=== PATIENT | female | born 1990 | race Caucasian/White ===

== ENCOUNTER 2016-08-06 15:16 | Emergency (ER) | payer SELFPAY ==
[~2016-08-06] VITALS: Wt 107.0 kg
[~2016-08-06 15:16] MED LIST: ACET500C5 PO; ALBU8.5H3 INH; BACTDS PO; BEN25 PO; BEN50 PO; BENZ100C70 PO; CEPH-443 PO; CEPH500C PO; CLOT30CR24 TOP; IBUP-1542 PO; IBUP800T25 PO; MED4DP PO; MUPI22OI2 TOP
== END 2016-08-06 17:41 | disposition left against medical advice (07) ==
LOC: FTE 15:16
DX: Z53.21 Procedure and treatment not carried out due to patient leaving prior to being seen by health care provider (principal)

== ENCOUNTER 2016-08-10 12:22 | Emergency (ER) | payer BC ==
[~2016-08-10] VITALS: Wt 105.0 kg
[2016-08-10] MEDS ORDERED: BEN25 PO (13:46)
--- NOTE | 2016-08-10 13:50 | ERD ---
ER Documentation Chief Complaint Date/Time DATE: 08/10/16 TIME: 13:47 Chief Complaint headache with no nausea no vomiting. no neuro deficit or trauma HPI 25-year-old female with no significant past medical history presents the ED complaining of an intermittent headache that started 1 month ago. States that she takes Benadryl for her headache and it resolves her headache. Reports that she is here for a prescription for Benadryl. Describes the pain as a slight achy feeling and is predominantly in the frontal region. Rates it a 8 out of 10. States that loud noises make it worse. Denies any nausea, vomiting, abdominal pain, chest pain, shortness of breath, weakness, dizziness, numbness or tingling, fever, neck stiffness, neck pain. Denies any head trauma or injuries. Denies any seizures or loss of consciousness. ROS All systems reviewed and are negative except as per history of present illness. Medications Home Meds Active Scripts Diphenhydramine Hcl* (Benadryl*) 25 Mg Cap, 25 MG PO Q6, #30 CAP Prov:ELIU GARCIA PA-C 08/10/16 Cephalexin* (Keflex*) 500 Mg Capsule, 500 MG PO QID for 7 Days, CAP Prov:KAYODE LANDERS PA-C 03/26/16 Ibuprofen* (Motrin*) 800 Mg Tab, 800 MG PO Q6, #30 TAB Prov:KAYODE LANDERS PA-C 03/26/16 Sulfamethoxazole-Trimethoprim* (Bactrim* DS) 800-160 Mg Tab, 1 TAB PO BID for 7 Days, TAB Prov:KAYODE LANDERS PA-C 03/26/16 Mupirocin* (Bactroban*) 2% -22 Gram Oint...g., 1 APPLIC TOP BID for 7 Days, EA Prov:LEYDA FARMER PA-C 02/17/16 Sulfamethoxazole-Trimethoprim* (Bactrim* DS) 800-160 Mg Tab, 1 TAB PO BID for 7 Days, TAB Prov:LEYDA FARMER PA-C 02/17/16 Cephalexin* (Keflex*) 500 Mg Capsule, 500 MG PO QID for 7 Days, CAP Prov:LEYDA FARMER PA-C 02/17/16 Diphenhydramine Hcl* (Benadryl*) 25 Mg Cap, 25 MG PO Q6, #20 CAP Prov:LEYDA FARMER PA-C 02/17/16 Diphenhydramine Hcl* (Benadryl*) 50 Mg Cap, 50 MG PO Q6H Y for ITCHING/RASH, # 30 CAP Prov:FLOYD MELGAR NP 02/08/16 Clotrimazole* (Clotrimazole* AF) 1% - 30 Gm Cream.gm., 1 APPLIC TOP BID for 14 Days, TUB Prov:FLOYD MELGAR BELLY DANCER 02/08/16 Methylprednisolone* (Medrol* DOSE PACK) 4 Mg/Dose-Pack Tab.ds.pk, 4 MG PO . DIRECTED, #1 PACKET Prov:NIRMAL MORIN PA-C 12/03/15 Benzonatate* (Tessalon Perle*) 100 Mg Capsule, 100 MG PO Q8H Y for COUGH, #30 CAP Prov:NIRMAL MORIN PA-C 12/03/15 Albuterol Sulfate* (Proair HFA*) 8.5 Gm Hfa.aer.ad, 2 PUFF INH Q4, #1 INHALER Prov:NIRMAL MORIN PA-C 12/03/15 Sulfamethoxazole-Trimethoprim* (Bactrim* DS) 800-160 Mg Tab, 1 TAB PO BID, #10 TAB 0 Refills Prov:DAVE CANDELARIA PA-C 10/31/15 Cephalexin* (Cephalexin*) 500 Mg Capsule, 500 MG PO Q6, #28 CAP 0 Refills Prov:DAVE CANDELARIA PA-C 10/31/15 Ibuprofen* (Motrin*) 600 Mg Tab, 600 MG PO Q6H Y for PAIN AND OR ELEVATED TEMP, #30 TAB Prov:ЕЛЕНА PAVON MD 09/17/15 Sulfamethoxazole-Trimethoprim* (Bactrim* DS) 800-160 Mg Tab, 1 TAB PO BID for 7 Days, TAB Prov:ЕЛЕНА PAVON MD 09/17/15 Cephalexin* (Keflex*) 500 Mg Capsule, 500 MG PO QID for 7 Days, CAP Prov:ЕЛЕНА PAVON MD 09/17/15 Acetaminophen* (Tylophen*) 500 Mg Capsule, 1 CAP PO Q4 Y for PAIN AND OR ELEVATED TEMP, #20 CAP Prov:YULI JOINER PA-C 06/12/15 Cephalexin* (Keflex*) 500 Mg Capsule, 500 MG PO QID for 5 Days, CAP Prov:YULI JOINER PA-C 06/12/15 Sulfamethoxazole-Trimethoprim* (Bactrim* DS) 800-160 Mg Tab, 1 TAB PO BID for 5 Days, TAB Prov:RHYSYULI PA-C 06/12/15 Allergies Allergies: Coded Allergies: No Known Allergy (Unverified , 08/10/16) PMhx/Soc Medical and Surgical Hx: pt denies Medical Hx, pt denies Surgical Hx History of Surgery: No Anesthesia Reaction: No Hx Neurological Disorder: No Hx Respiratory Disorders: No Hx Cardiac Disorders: No Hx Psychiatric Problems: No Hx Miscellaneous Medical Probl: No Hx Alcohol Use: No Hx Substance Use: No Hx Tobacco Use: No Smoking Status: Never smoker Physical Exam Vitals Vital Signs Date Time Temp Pulse Resp B/P Pulse Ox O2 Delivery O2 Flow Rate FiO2 08/10/16 14:20 99.1 67 18 115/53 100 Room Air 08/10/16 12:26 97.9 85 18 140/84 98 Physical Exam Const: [id number], well-nourished. In no acute distress. Head: Atraumatic, normocephalic Eyes: Normal Conjunctiva without injection. No purulent discharge. PERRLA. EOMI ENT: Normal external ear. Ear canal without erythema. Tympanic membrane pearly be without effusion or bulging. Nasal canal clear with normal turbinates. Moist oropharynx without tonsillar exudates. Non-erythematous pharynx. Uvula midline. No drooling. No trismus. Neck: No cervical midline tenderness. Full range of motion. No meningismus. No cervical lymphadenopathy. No JVD. Resp: Clear to auscultation bilaterally. No wheezing, rhonchi, rales, or crackles. No accessory muscle use. No retractions. Cardio: Regular rate and rhythm. No murmurs, rubs or gallops. Abd: Soft, non tender, non distended. Normal bowel sounds. No palpable masses. No rebound tenderness. No guarding. Negative McBurney's Point. Negative Dunlap's Sign. Skin: Normal skin turgor. No petechiae or rashes Back: No midline tenderness. No CVA tenderness. Ext: No cyanosis, or edema. Distal pulses intact bilaterally. Neur: Awake and alert. Normal gait. Normal coordination. Cranial Nerves II- VII intact. Normal finger to nose. Muscle strength 5/5. Sensation intact. Psych: Normal Mood and Affect Procedures/MDM This is a 25-year-old female with no significant past medical history presents to the ED complaining of a generalized headache that started intermittently 1 month ago. Patient is afebrile nontoxic appearing. Patient has normal vital signs. Patient is neurologically intact. There is no indication for CT of the brain without contrast at this time since patient states that her headache resolves with Benadryl. No head trauma. Low suspicion for intracranial bleed, subdural hematoma, subarachnoid hemorrhage, meningitis, epidural hematoma, stroke, TIA, or other emergent conditions. Discharge medications: Benadryl Follow up with primary care physician in 1-2 days. Instructed patient to return to the ED sooner for any worsening symptoms. Patient's questions were answered. Patient understood and agreed with discharge plan. Patient discharged stable. Departure Diagnosis: Primary Impression: Headache Headache type: unspecified Headache chronicity pattern: unspecified pattern Intractability: not intractable Qualified Code: R51 - Nonintractable headache, unspecified chronicity pattern, unspecified headache type Condition: Stable Patient Instructions: Self-Care for Headaches, Headache, Unspecified Referrals: [facility] YOU HAVE RECEIVED A MEDICAL SCREENING EXAM AND THE RESULTS INDICATE THAT YOU DO NOT HAVE A CONDITION THAT REQUIRES URGENT TREATMENT IN THE EMERGENCY DEPARTMENT. FURTHER EVALUATION AND TREATMENT OF YOUR CONDITION CAN WAIT UNTIL YOU ARE SEEN IN YOUR DOCTORS OFFICE WITHIN THE NEXT 1-2 DAYS. IT IS YOUR RESPONSIBILITY TO MAKE AN APPOINTMENT FOR FOL- CARE. IF YOU HAVE A PRIMARY DOCTOR --you should call your primary doctor and schedule an appointment IF YOU DO NOT HAVE A PRIMARY DOCTOR YOU CAN CALL OUR PHYSICIAN REFERRAL HOTLINE AT IF YOU CAN NOT AFFORD TO SEE A PHYSICIAN YOU CAN CHOSE FROM THE FOLLOWING [facility] [address] [facility] [address] [facility]. [facility] [address] [facility] [address] [facility] [address] [facility]. [facility] [address] [facility]. [facility] YOU HAVE RECEIVED A MEDICAL SCREENING EXAM AND THE RESULTS INDICATE THAT YOU DO NOT HAVE A CONDITION THAT REQUIRES URGENT TREATMENT IN THE EMERGENCY DEPARTMENT. FURTHER EVALUATION AND TREATMENT OF YOUR CONDITION CAN WAIT UNTIL YOU ARE SEEN IN YOUR DOCTORS OFFICE WITHIN THE NEXT 1-2 DAYS. IT IS YOUR RESPONSIBILITY TO MAKE AN APPOINTMENT FOR FOLOW-UP CARE. IF YOU HAVE A PRIMARY DOCTOR --you should call your primary doctor and schedule and appointment IF YOU DO NOT HAVE A PRIMARY DOCTOR YOU CAN CALL OUR PHYSICIAN REFERRAL HOTLINE AT . IF YOU CAN NOT AFFORD TO SEE A PHYSICIAN YOU CAN CHOSE FROM THE FOLLOWING [facility]: [facility] [address] [place] [address] [facility] [address] [place] [address] [facility] [address] [place] [address] Additional Instructions: FOLLOW UP WITH YOUR PRIMARY CARE PHYSICIAN TOMORROW. Return to this facility if you are not improving as expected. ELIU GARCIA PA-C Aug 10, 2016 13:50
[2016-08-10 14:20] VITALS: BP 115/53; PULSE 67; RESP 18; TEMP 99.1
== END 2016-08-10 14:20 | disposition home or self-care (01) ==
LOC: FTE 12:22
DX: R51 Headache (principal)
CPT/HCPCS: 99283

== ENCOUNTER 2016-10-08 16:47 | Emergency (ER) | payer BC, MEDICAID ==
[~2016-10-08] VITALS: Wt 92.5 kg
[2016-10-08] MEDS ORDERED: ACETAMINOPHEN 500 MG TAB PO STA (17:58)
[2016-10-08] MEDS ORDERED: KETOROLAC 60 MG INJ IM STA (17:58)
[2016-10-08] MEDS ORDERED: ONDANSETRON (ODT) 4 MG TAB ODT STA (17:58)
[2016-10-08] MEDS ORDERED: FAMOTIDINE 20 MG TAB PO ONE (18:00)
[2016-10-08 18:14] LABS: URINE BLOOD (Dip) POC 1+ (NEGATIVE)
[2016-10-08] MEDS ORDERED: ACET1TAB40 PO (18:43)
[2016-10-08] MEDS ORDERED: BISM262O23 PO (18:43)
[2016-10-08] MEDS ORDERED: IBUP-1542 PO (18:43)
--- NOTE | 2016-10-08 18:47 | ERD ---
ER Documentation Chief Complaint Date/Time DATE: 10/08/16 TIME: 18:45 Chief Complaint ABDOMINAL PAIN AND DIARRHEA SINCE LAST NIGHT. NO FEVERS NOTED. HPI 26-year-old female presents with some lower left abdominal pain and diarrhea since last night. She has nausea but no vomiting. She denies measured fevers. She denies right-sided abdominal pain, dysuria. ROS All systems reviewed and are negative except as per history of present illness. Medications Home Meds Active Scripts Bismuth Subsalicylate* (Pepto-Bismol*) 262 Mg/15 Ml Oral.susp, 15 ML PO Q6H Y for DIARRHEA for 4 Days, ML Prov:PATRICE ROWE MD 10/08/16 Acetaminophen with Codeine (Acetaminophen-Cod #3 Tablet) 1 Each Tablet, 1 TAB PO Q6H Y for PAIN, #10 TAB Prov:PATRICE ROWE MD 10/08/16 Ibuprofen* (Motrin*) 600 Mg Tab, 600 MG PO Q6, #15 TAB Prov:PATRICE ROWE MD 10/08/16 Diphenhydramine Hcl* (Benadryl*) 25 Mg Cap, 25 MG PO Q6, #30 CAP Prov:ELIU GARCIA PA-C 08/10/16 Cephalexin* (Keflex*) 500 Mg Capsule, 500 MG PO QID for 7 Days, CAP Prov:KAYODE LANDERS PA-C 03/26/16 Ibuprofen* (Motrin*) 800 Mg Tab, 800 MG PO Q6, #30 TAB Prov:KAYODE LANDERS PA-C 03/26/16 Sulfamethoxazole-Trimethoprim* (Bactrim* DS) 800-160 Mg Tab, 1 TAB PO BID for 7 Days, TAB Prov:KAYODE LANDERS PA-C 03/26/16 Mupirocin* (Bactroban*) 2% -22 Gram Oint...g., 1 APPLIC TOP BID for 7 Days, EA Prov:LEYDA FARMER PA-C 02/17/16 Sulfamethoxazole-Trimethoprim* (Bactrim* DS) 800-160 Mg Tab, 1 TAB PO BID for 7 Days, TAB Prov:LEYDA FARMER PA-C 02/17/16 Cephalexin* (Keflex*) 500 Mg Capsule, 500 MG PO QID for 7 Days, CAP Prov:LEYDA FARMER PA-C 02/17/16 Diphenhydramine Hcl* (Benadryl*) 25 Mg Cap, 25 MG PO Q6, #20 CAP Prov:LEYDA FARMER PA-C 02/17/16 Diphenhydramine Hcl* (Benadryl*) 50 Mg Cap, 50 MG PO Q6H Y for ITCHING/RASH, # 30 CAP Prov:FLOYD MELGAR. WELLNESS COORDINATOR 02/08/16 Clotrimazole* (Clotrimazole* AF) 1% - 30 Gm Cream.gm., 1 APPLIC TOP BID for 14 Days, TUB Prov:FLOYD MELGAR X. WELLNESS COORDINATOR 02/08/16 Methylprednisolone* (Medrol* DOSE PACK) 4 Mg/Dose-Pack Tab.ds.pk, 4 MG PO . DIRECTED, #1 PACKET Prov:NIRMAL MORIN PA-C 12/03/15 Benzonatate* (Tessalon Perle*) 100 Mg Capsule, 100 MG PO Q8H Y for COUGH, #30 CAP Prov:NIRMAL MORIN PA-C 12/03/15 Albuterol Sulfate* (Proair HFA*) 8.5 Gm Hfa.aer.ad, 2 PUFF INH Q4, #1 INHALER Prov:NIRMAL MORIN PA-C 12/03/15 Sulfamethoxazole-Trimethoprim* (Bactrim* DS) 800-160 Mg Tab, 1 TAB PO BID, #10 TAB 0 Refills Prov:DAVE CANDELARIA PA-C 10/31/15 Cephalexin* (Cephalexin*) 500 Mg Capsule, 500 MG PO Q6, #28 CAP 0 Refills Prov:DAVE CANDELARIA PA-C 10/31/15 Ibuprofen* (Motrin*) 600 Mg Tab, 600 MG PO Q6H Y for PAIN AND OR ELEVATED TEMP, #30 TAB Prov:ЕЛЕНА PAVON MD 09/17/15 Sulfamethoxazole-Trimethoprim* (Bactrim* DS) 800-160 Mg Tab, 1 TAB PO BID for 7 Days, TAB Prov:ЕЛЕНА PAVON MD 09/17/15 Cephalexin* (Keflex*) 500 Mg Capsule, 500 MG PO QID for 7 Days, CAP Prov:ЕЛЕНА PAVON MD 09/17/15 Acetaminophen* (Tylophen*) 500 Mg Capsule, 1 CAP PO Q4 Y for PAIN AND OR ELEVATED TEMP, #20 CAP Prov:YULI JOINER PA-C 06/12/15 Cephalexin* (Keflex*) 500 Mg Capsule, 500 MG PO QID for 5 Days, CAP Prov:SHERMANSUSANNAMartYULI PA-C 06/12/15 Sulfamethoxazole-Trimethoprim* (Bactrim* DS) 800-160 Mg Tab, 1 TAB PO BID for 5 Days, TAB Prov:RHYSYULI PA-C 06/12/15 Allergies Allergies: Coded Allergies: No Known Allergy (Unverified , 10/08/16) PMhx/Soc Medical and Surgical Hx: pt denies Medical Hx, pt denies Surgical Hx History of Surgery: No Anesthesia Reaction: No Hx Neurological Disorder: No Hx Respiratory Disorders: No Hx Cardiac Disorders: No Hx Psychiatric Problems: No Hx Miscellaneous Medical Probl: No Hx Alcohol Use: No Hx Substance Use: No Hx Tobacco Use: No Smoking Status: Never smoker Physical Exam Vitals Vital Signs Date Time Temp Pulse Resp B/P Pulse Ox O2 Delivery O2 Flow Rate FiO2 10/08/16 16:54 99.9 102 20 135/82 98 Physical Exam Const: [] Alert, [id number]. Morbidly obese. Head: Atraumatic Eyes: Normal Conjunctiva ENT: Normal External Ears, Nose and Mouth. Neck: Full range of motion..~ No meningismus. Resp: Clear to auscultation bilaterally Cardio: Regular rate and rhythm, no murmurs Abd: Soft, minimal tenderness in the epigastric and left lower abdomen without rebound. No tenderness at McBurney's point no Dunlap sign. non distended. Normal bowel sounds Skin: No petechiae or rashes Back: No midline or flank tenderness Ext: No cyanosis, or edema Neur: Awake and alert Psych: Normal Mood and Affect Results 24 hrs Laboratory Tests Test 10/08/16 18:17 Bedside Urine Blood 1+ Bedside Urine Glucose (UA) Negative Bedside Urine Ketones (LAB) Negative Bedside Urine Leukocyte Esterase (L Negative Bedside Urine Nitrite (LAB) Negative Bedside Urine Protein (LAB) Trace Bedside Urine pH (LAB) 5.5 Current Medications Medications (Trade) Dose Ordered Sig/Zay Route PRN Reason Start Time Stop Time Status Last Admin Dose Admin Ketorolac Tromethamine (Toradol) 60 mg ONCE STAT IM 10/08/16 17:58 10/08/16 17:59 DC 10/08/16 18:20 Acetaminophen (Tylenol Tab) 500 mg ONCE STAT PO 10/08/16 17:58 10/08/16 17:59 DC 10/08/16 18:19 Ondansetron HCl (Zofran Odt) 8 mg ONCE STAT ODT 10/08/16 17:58 10/08/16 17:59 DC 10/08/16 18:20 Famotidine (Pepcid) 20 mg ONCE ONCE PO 10/08/16 18:00 10/08/16 18:01 DC 10/08/16 18:19 Procedures/MDM Urine is negative for leukocytes, nitrites, glucose. HCG is negative. Patient was given Zofran, Tylenol and Toradol 60 mg IM for abdominal cramping. Patient has signs and symptoms lower abdominal pain and diarrhea suggestive of a gastroenteritis with her food poisoning or viral. Signs or symptoms currently not suggestive of appendicitis, acute abdomen, sepsis, obstruction and suspicion for diverticulitis low given onset and duration. Patient will be treated with Tylenol No. 3, Pepto-Bismol and ibuprofen instructions for clear fluid. Patient should return for fevers, worsening pain, blood, new worsening symptoms or primary care doctor this week. Departure Diagnosis: Primary Impression: Abdominal pain Abdominal location: left lower quadrant Qualified Code: R10.32 - Left lower quadrant pain Additional Impression: Diarrhea Diarrhea type: unspecified type Qualified Code: R19.7 - Diarrhea, unspecified type Condition: Stable Patient Instructions: Abdominal Pain, Diarrhea, Viral (Child) (Adult) Additional Instructions: Likely viral illness usually resolves in 1-3 days. Recheck for new or worsening symptoms-worsening pain especially on right side, blood, or with primary care doctor PATRICE ROWE MD Oct 08, 2016 18:46
== END 2016-10-08 18:56 | disposition home or self-care (01) ==
LOC: FTE 16:47
DX: R10.32 Left lower quadrant pain (principal); R19.7 Diarrhea, unspecified; R11.0 Nausea; E66.01 Morbid (severe) obesity due to excess calories
CPT/HCPCS: 81003; 96372; J1885; Z7502; Z7610

== ENCOUNTER 2016-11-15 13:55 | Emergency (ER) | payer MEDICAID, OTHER ==
[~2016-11-15] VITALS: Ht 165.1 cm; Wt 107.0 kg
[~2016-11-15 13:55] MED LIST changes: +ACET1TAB40 PO; +BISM262O23 PO
[2016-11-15 13:57] VITALS: Ht 165.1 cm; Wt 107.0 kg
--- NOTE | 2016-11-15 14:06 | ERD ---
ER Documentation Chief Complaint Date/Time DATE: 11/15/16 Chief Complaint Bilateral axillary abscesses HPI The patient is a 26-year-old female with a history of hydradenitis suppurativa, who presents to the Emergency Department with complaint of bilateral axillary abscesses. The patient reports that she has a long history of similar symptoms that she has been experiencing over the past several years. She has been evaluated for these symptoms multiple times in the past, and has often required antibiotic therapy and/or incision and drainage procedure. She notes that her symptoms are very mild at this time, and believes that she likely only requires antibiotic therapy. She notes that in the past she has received Bactrim DS and Keflex many times previously, and notes that after taking these medications multiple times, she began to experience adverse reactions, including itching, fatigue and lower lip swelling. Therefore, she is requesting that different antibiotics be prescribed today. She denies fevers, sweats, chills, nausea or vomiting. Denies headache, dizziness, weakness. Denies chest pain, palpitations or shortness of breath. She has not yet seen her primary medical provider or a maintenance millwright for these symptoms. She rates her current pain as 5 out of 10, describes as throbbing in nature, localized to the site of the abscesses. She admits to mild spontaneous drainage, but no bleeding. No fluctuance, redness or lymphatic streaking ROS All systems reviewed and are negative except as per history of present illness. Medications Home Meds Active Scripts Ibuprofen* (Motrin*) 600 Mg Tab, 600 MG PO Q6, #30 TAB Prov:JUAN ALBERTO YIP PA-C 11/15/16 Clindamycin Hcl* (Clindamycin Hcl*) 300 Mg Capsule, 300 MG PO TID for 10 Days, CAP Prov:JUAN ALBERTO YIP PA-C 11/15/16 Bismuth Subsalicylate* (Pepto-Bismol*) 262 Mg/15 Ml Oral.susp, 15 ML PO Q6H Y for DIARRHEA for 4 Days, ML Prov:PATRICE ROWE MD 10/08/16 Acetaminophen with Codeine (Acetaminophen-Cod #3 Tablet) 1 Each Tablet, 1 TAB PO Q6H Y for PAIN, #10 TAB Prov:PATRICE ROWE MD 10/08/16 Ibuprofen* (Motrin*) 600 Mg Tab, 600 MG PO Q6, #15 TAB Prov:PATRICE ROWE MD 10/08/16 Diphenhydramine Hcl* (Benadryl*) 25 Mg Cap, 25 MG PO Q6, #30 CAP Prov:ELIU GARCIA PA-C 08/10/16 Cephalexin* (Keflex*) 500 Mg Capsule, 500 MG PO QID for 7 Days, CAP Prov:KAYODE LANDERS PA-C 03/26/16 Ibuprofen* (Motrin*) 800 Mg Tab, 800 MG PO Q6, #30 TAB Prov:KAYODE LANDERS PA-C 03/26/16 Sulfamethoxazole-Trimethoprim* (Bactrim* DS) 800-160 Mg Tab, 1 TAB PO BID for 7 Days, TAB Prov:KAYODE LANDERS PA-C 03/26/16 Mupirocin* (Bactroban*) 2% -22 Gram Oint...g., 1 APPLIC TOP BID for 7 Days, EA Prov:LEYDA FARMER PA-C 02/17/16 Sulfamethoxazole-Trimethoprim* (Bactrim* DS) 800-160 Mg Tab, 1 TAB PO BID for 7 Days, TAB Prov:LEYDA FARMER PA-C 02/17/16 Cephalexin* (Keflex*) 500 Mg Capsule, 500 MG PO QID for 7 Days, CAP Prov:LEYDA FARMER PA-C 02/17/16 Diphenhydramine Hcl* (Benadryl*) 25 Mg Cap, 25 MG PO Q6, #20 CAP Prov:LEYDA FARMER PA-C 02/17/16 Diphenhydramine Hcl* (Benadryl*) 50 Mg Cap, 50 MG PO Q6H Y for ITCHING/RASH, # 30 CAP Prov:FLOYD MELGAR NP 02/08/16 Clotrimazole* (Clotrimazole* AF) 1% - 30 Gm Cream.gm., 1 APPLIC TOP BID for 14 Days, TUB Prov:FLOYD MELGAR NP 02/08/16 Methylprednisolone* (Medrol* DOSE PACK) 4 Mg/Dose-Pack Tab.ds.pk, 4 MG PO . DIRECTED, #1 PACKET Prov:NIRMAL MORIN PA-C 12/03/15 Benzonatate* (Tessalon Perle*) 100 Mg Capsule, 100 MG PO Q8H Y for COUGH, #30 CAP Prov:NIRMAL MORIN PA-C 12/03/15 Albuterol Sulfate* (Proair HFA*) 8.5 Gm Hfa.aer.ad, 2 PUFF INH Q4, #1 INHALER Prov:NIRMAL MORIN PA-C 12/03/15 Sulfamethoxazole-Trimethoprim* (Bactrim* DS) 800-160 Mg Tab, 1 TAB PO BID, #10 TAB 0 Refills Prov:DAVE CANDELARIA PA-C 10/31/15 Cephalexin* (Cephalexin*) 500 Mg Capsule, 500 MG PO Q6, #28 CAP 0 Refills Prov:DAVE CANDELARIA PA-C 10/31/15 Ibuprofen* (Motrin*) 600 Mg Tab, 600 MG PO Q6H Y for PAIN AND OR ELEVATED TEMP, #30 TAB Prov:ЕЛЕНА PAVON MD 09/17/15 Sulfamethoxazole-Trimethoprim* (Bactrim* DS) 800-160 Mg Tab, 1 TAB PO BID for 7 Days, TAB Prov:ЕЛЕНА PAVON MD 09/17/15 Cephalexin* (Keflex*) 500 Mg Capsule, 500 MG PO QID for 7 Days, CAP Prov:ЕЛЕНА PAVON MD 09/17/15 Acetaminophen* (Tylophen*) 500 Mg Capsule, 1 CAP PO Q4 Y for PAIN AND OR ELEVATED TEMP, #20 CAP Prov:YULI JOINER PA-C 06/12/15 Cephalexin* (Keflex*) 500 Mg Capsule, 500 MG PO QID for 5 Days, CAP Prov:YULI JOINER PA-C 06/12/15 Sulfamethoxazole-Trimethoprim* (Bactrim* DS) 800-160 Mg Tab, 1 TAB PO BID for 5 Days, TAB Prov:YULI JOINER PA-C 06/12/15 Allergies Allergies: Coded Allergies: No Known Allergy (Unverified , 10/08/16) PMhx/Soc History of Surgery: No Anesthesia Reaction: No Hx Neurological Disorder: No Hx Respiratory Disorders: No Hx Cardiac Disorders: No Hx Psychiatric Problems: No Hx Miscellaneous Medical Probl: No Hx Alcohol Use: No Hx Substance Use: No Hx Tobacco Use: No Physical Exam Vitals Vital Signs Date Time Temp Pulse Resp B/P Pulse Ox O2 Delivery O2 Flow Rate FiO2 11/15/16 13:57 98.1 95 18 130/70 99 Physical Exam GENERAL: Well-developed, well-nourished, female, in no acute distress. HEENT: Head is normocephalic, atraumatic. No scleral pallor or icterus. Pupils equal, round and reactive to light. Conjunctiva pink. Moist mucous membranes. NECK: Supple. RESPIRATORY: Lungs are clear to auscultation bilaterally. Equal breath sounds. Normal expiratory effort. CARDIOVASCULAR: Regular rate and rhythm. S1 and S2 normal. EXTREMITIES: No clubbing, cyanosis, or edema. Moving all extremities. Muscle tone is normal. NEUROLOGIC: The patient is alert, awake, and oriented x 3. No focal neurologic deficits. INTEGUMENT: Multiple tender, deep-seated inflammatory nodules/boils to bilateral axillary regions. 2 areas noted to be spontaneously open with very minimal serosanguineous drainage. No warm or lymphatic streaking. No crepitus. No fluctuance. Findings consistent with hydradenitis suppurativa. PSYCHIATRIC: Cooperative; appropriate. Procedures/MDM This is a 26-year-old female presenting to the Emergency Department with recurrent abscesses to her bilateral axillary regions, consistent with her prior history of hydradenitis suppurativa. The patient's affected areas are noted to be spontaneously draining, and there is no indication for incision and drainage at this time. Patient has a history of similar symptoms, and will therefore be treated with clindamycin for soft tissue infection. Bactrim and Keflex will not be prescribed, per patient request. No evidence of lymphatic streaking. Patient does not meet SIRS or sepsis criteria. At this time, the patient is in stable condition, and therefore she can be discharged home with strict return precautions for signs of deteriorating or worsening condition. She is advised to follow-up with her primary medical provider for reevaluation and further management within the next 1-2 days, or return to the ER sooner for any new or worsening symptoms. Additionally, I requested that she follow up with the maintenance millwright as well for further management and possible surgical excision. I shared my medical decision-making and plan with the patient and she verbally understands and agrees with the plan for further evaluation and care as an outpatient. At the time of discharge all questions were answered. Departure Diagnosis: Primary Impression: Hidradenitis suppurativa Condition: Stable Patient Instructions: Hidradenitis Suppurativa, Abx Additional Instructions: Call your primary care doctor TOMORROW for an appointment during the next 1-2 days.See the doctor sooner or return here if your condition worsens before your appointment time. Please request that your doctor refer you to a maintenance millwright for further evaluation. JUAN ALBERTO YIP PA-C Nov 15, 2016 14:06
[2016-11-15] MEDS ORDERED: CLIN-73 PO (14:07)
[2016-11-15] MEDS ORDERED: IBUP-1542 PO (14:07)
== END 2016-11-15 14:09 | disposition home or self-care (01) ==
LOC: E/R 13:55
DX: L73.2 Hidradenitis suppurativa (principal)
CPT/HCPCS: 99283

== ENCOUNTER 2017-01-09 11:19 | Emergency (ER) | payer OTHER ==
[~2017-01-09] VITALS: Ht 160 cm; Wt 107.0 kg
[~2017-01-09 11:19] MED LIST changes: +CLIN-73 PO
[2017-01-09 11:21] VITALS: Ht 160 cm; Wt 107.0 kg
[2017-01-09] MEDS ORDERED: DOXY100T20 PO (11:50)
[2017-01-09] MEDS ORDERED: BEN25 PO (12:03)
--- NOTE | 2017-01-09 12:32 | ERD ---
ER Documentation Chief Complaint Date/Time DATE: 01/09/17 TIME: 12:28 Chief Complaint left axilla possible abcess HPI This patient is a 26-year-old female presenting to the emergency department for bilateral pimples to her armpits ongoing intermittently for the past year. She reports yellow discharge. Symptoms are worsening acutely. She tried to get an appointment with her PCP but was unable to. She denies fevers, chills, or other symptoms. ROS All systems reviewed and are negative except as per history of present illness. Medications Home Meds Active Scripts Diphenhydramine Hcl* (Benadryl*) 25 Mg Cap, 25 MG PO Q6, #15 CAP Prov:PATRICE ROWE MD 01/09/17 Doxycycline Hyclate* (Doxycycline Hyclate*) 100 Mg Tablet.dr, 100 MG PO BID for 10 Days, #20 TAB Prov:DEBORAH CLARK PA-C 01/09/17 Ibuprofen* (Motrin*) 600 Mg Tab, 600 MG PO Q6, #30 TAB Prov:JUAN ALBERTO YIP PA-C 11/15/16 Clindamycin Hcl* (Clindamycin Hcl*) 300 Mg Capsule, 300 MG PO TID for 10 Days, CAP Prov:JUAN ALBERTO YIP PA-C 11/15/16 Bismuth Subsalicylate* (Pepto-Bismol*) 262 Mg/15 Ml Oral.susp, 15 ML PO Q6H Y for DIARRHEA for 4 Days, ML Prov:PATRICE ROWE MD 10/08/16 Acetaminophen with Codeine (Acetaminophen-Cod #3 Tablet) 1 Each Tablet, 1 TAB PO Q6H Y for PAIN, #10 TAB Prov:PATRICE ROWE MD 10/08/16 Ibuprofen* (Motrin*) 600 Mg Tab, 600 MG PO Q6, #15 TAB Prov:PATRICE ROWE MD 10/08/16 Diphenhydramine Hcl* (Benadryl*) 25 Mg Cap, 25 MG PO Q6, #30 CAP Prov:ELIU GARCIA PA-C 08/10/16 Cephalexin* (Keflex*) 500 Mg Capsule, 500 MG PO QID for 7 Days, CAP Prov:KAYODE LANDERS PA-C 03/26/16 Ibuprofen* (Motrin*) 800 Mg Tab, 800 MG PO Q6, #30 TAB Prov:KAYODE LANDERS PA-C 03/26/16 Sulfamethoxazole-Trimethoprim* (Bactrim* DS) 800-160 Mg Tab, 1 TAB PO BID for 7 Days, TAB Prov:KAYODE LANDERS PA-C 03/26/16 Mupirocin* (Bactroban*) 2% -22 Gram Oint...g., 1 APPLIC TOP BID for 7 Days, EA Prov:LEYDA FARMER PA-C 02/17/16 Sulfamethoxazole-Trimethoprim* (Bactrim* DS) 800-160 Mg Tab, 1 TAB PO BID for 7 Days, TAB Prov:LEYDA FARMER PA-C 02/17/16 Cephalexin* (Keflex*) 500 Mg Capsule, 500 MG PO QID for 7 Days, CAP Prov:LEYDA FARMER PA-C 02/17/16 Diphenhydramine Hcl* (Benadryl*) 25 Mg Cap, 25 MG PO Q6, #20 CAP Prov:LEYDA FARMER PA-C 02/17/16 Diphenhydramine Hcl* (Benadryl*) 50 Mg Cap, 50 MG PO Q6H Y for ITCHING/RASH, # 30 CAP Prov:FLOYD MELGAR [employer]PECTOR [employer]ING 02/08/16 Clotrimazole* (Clotrimazole* AF) 1% - 30 Gm Cream.gm., 1 APPLIC TOP BID for 14 Days, TUB Prov:FLOYD MELGAR. INSPECTOR [employer]ONDITIONING 02/08/16 Methylprednisolone* (Medrol* DOSE PACK) 4 Mg/Dose-Pack Tab.ds.pk, 4 MG PO . DIRECTED, #1 PACKET Prov:NIRMAL MORIN PA-C 12/03/15 Benzonatate* (Tessalon Perle*) 100 Mg Capsule, 100 MG PO Q8H Y for COUGH, #30 CAP Prov:NIRMAL MORIN PA-C 12/03/15 Albuterol Sulfate* (Proair HFA*) 8.5 Gm Hfa.aer.ad, 2 PUFF INH Q4, #1 INHALER Prov:NIRMAL MORIN PA-C 12/03/15 Sulfamethoxazole-Trimethoprim* (Bactrim* DS) 800-160 Mg Tab, 1 TAB PO BID, #10 TAB 0 Refills Prov:DAVE CANDELARIA PA-C 10/31/15 Cephalexin* (Cephalexin*) 500 Mg Capsule, 500 MG PO Q6, #28 CAP 0 Refills Prov:DAVE CANDELARIA PA-C 10/31/15 Ibuprofen* (Motrin*) 600 Mg Tab, 600 MG PO Q6H Y for PAIN AND OR ELEVATED TEMP, #30 TAB Prov:ЕЛЕНА PAVON MD 09/17/15 Sulfamethoxazole-Trimethoprim* (Bactrim* DS) 800-160 Mg Tab, 1 TAB PO BID for 7 Days, TAB Prov:ЕЛЕНА PAVON MD 09/17/15 Cephalexin* (Keflex*) 500 Mg Capsule, 500 MG PO QID for 7 Days, CAP Prov:ЕЛЕНА PAVON MD 09/17/15 Acetaminophen* (Tylophen*) 500 Mg Capsule, 1 CAP PO Q4 Y for PAIN AND OR ELEVATED TEMP, #20 CAP Prov:YULI JOINER PA-C 06/12/15 Cephalexin* (Keflex*) 500 Mg Capsule, 500 MG PO QID for 5 Days, CAP Prov:YULI JOINERC 06/12/15 Sulfamethoxazole-Trimethoprim* (Bactrim* DS) 800-160 Mg Tab, 1 TAB PO BID for 5 Days, TAB Prov:YULI JOINER-C 06/12/15 Allergies Allergies: Coded Allergies: No Known Allergy (Unverified , 10/08/16) PMhx/Soc Medical and Surgical Hx: pt denies Medical Hx, pt denies Surgical Hx History of Surgery: No Anesthesia Reaction: No Hx Neurological Disorder: No Hx Respiratory Disorders: No Hx Cardiac Disorders: No Hx Psychiatric Problems: No Hx Miscellaneous Medical Probl: No Hx Alcohol Use: No Hx Substance Use: No Hx Tobacco Use: No Physical Exam Vitals Vital Signs Date Time Temp Pulse Resp B/P Pulse Ox O2 Delivery O2 Flow Rate FiO2 01/09/17 11:21 97.6 65 18 123/74 99 Physical Exam Const: Morbidly obese nontoxic-appearing female. Head: Atraumatic Eyes: Normal Conjunctiva ENT: Normal External Ears, Nose and Mouth. Neck: Full range of motion..~ No meningismus. Resp: Clear to auscultation bilaterally Cardio: Regular rate and rhythm, no murmurs Abd: Soft, non tender, non distended. Normal bowel sounds Skin: There is bilateral folliculitis noted to axillary areas with some active purulent material present. There are small multiple indurated abscess is noted to bilateral axillary areas. Back: No midline or flank tenderness Ext: No cyanosis, or edema Neur: Awake and alert Psych: Normal Mood and Affect Procedures/MDM 26-year-old female presenting for bilateral axillary folliculitis. On physical examination there is some areas of induration but no areas of fluctuance in which I believe incision and drainage is mandatory. However, I discussed with the patient possibility of incision and drainage today but she states she would rather try outpatient management with antibiotics first. The patient was prescribed doxycycline. The patient is to have close follow-up with the primary care physician. The patient should follow-up with a rig mechanic if symptoms persist. I have low suspicion for disseminated cellulitis, septicemia , or other emergent conditions. Strict ER return parameters were discussed and the patient demonstrates good understanding. Departure Diagnosis: Primary Impression: Folliculitis Condition: Fair Patient Instructions: Folliculitis Referrals: [facility] YOU HAVE RECEIVED A MEDICAL SCREENING EXAM AND THE RESULTS INDICATE THAT YOU DO NOT HAVE A CONDITION THAT REQUIRES URGENT TREATMENT IN THE EMERGENCY DEPARTMENT. FURTHER EVALUATION AND TREATMENT OF YOUR CONDITION CAN WAIT UNTIL YOU ARE SEEN IN YOUR DOCTORS OFFICE WITHIN THE NEXT 1-2 DAYS. IT IS YOUR RESPONSIBILITY TO MAKE AN APPOINTMENT FOR FOLOW-UP CARE. IF YOU HAVE A PRIMARY DOCTOR --you should call your primary doctor and schedule an appointment IF YOU DO NOT HAVE A PRIMARY DOCTOR YOU CAN CALL OUR PHYSICIAN REFERRAL HOTLINE AT IF YOU CAN NOT AFFORD TO SEE A PHYSICIAN YOU CAN CHOSE FROM THE FOLLOWING [facility] [address] [facility] [address] [facility]. [facility] [address] [facility] [address] [facility]. [facility] [address] [facility]. [facility]. [address] Additional Instructions: Follow up with your PCP within the next 1-3 days for a repeat evaluation and a possible referral to a specialist, if required. Return the the emergency department immediately if symptoms worsen or change. If you have any questions regarding medications, ask your pharmacist or us before you leave. If any adverse reactions, occur while taking your medications, discontinue the treatment and return to the emergency department immediately. If any new or worsening symptoms, uncontrolled fevers, or other unexplained symptoms occur, return to the emergency department immediately. Take your medications as directed, and complete the entire course of treatment. DEBORAH CLARK PA-C Jan 09, 2017 12:32
== END 2017-01-09 12:05 | disposition home or self-care (01) ==
LOC: FTE 11:19
DX: L73.9 Follicular disorder, unspecified (principal)
CPT/HCPCS: 99283

== ENCOUNTER 2017-01-10 11:21 | Emergency (ER) | payer OTHER ==
[~2017-01-10] VITALS: Wt 106.5 kg
[~2017-01-10 11:21] MED LIST changes: +DOXY100T20 PO
[2017-01-10] MEDS ORDERED: LIDOCAINE 1% (MDV) 20 ML INJ SC ONE (13:00)
--- NOTE | 2017-01-10 14:13 | ERD ---
ER Documentation Chief Complaint Date/Time DATE: 01/10/17 TIME: 14:05 Chief Complaint ABCESS ON LEFT AXILA HPI Patient is a 26-year-old female with a past medical history of recurrent hidradenitis suppurativa who presents to the emergency department for concerns of an abscess in her left axilla. Patient was seen here yesterday for similar concerns. At that time, she was offered an incision and drainage of her abscess , however patient declined and stated she wished to try antibiotics first. She reports taking doxycycline and Benadryl for itching. Patient states she is back today for drainage of abscess. She does report yellow discharge from the affected area. Patient states she has "a alliance party to go tonight" and would like the "redness and swelling to go away". She denies any fevers, chills, nausea, or vomiting. Patient states that she does have a follow-up appointment with the hat maker this month. Of note, patient has been seen numerous times for similar presentations. ROS All systems reviewed and are negative except as per history of present illness. Medications Home Meds Active Scripts Diphenhydramine Hcl* (Benadryl*) 25 Mg Cap, 25 MG PO Q6, #15 CAP Prov:PATRICE ROWE MD 01/09/17 Doxycycline Hyclate* (Doxycycline Hyclate*) 100 Mg Tablet.dr, 100 MG PO BID for 10 Days, #20 TAB Prov:DEBORAH CLARK PA-C 01/09/17 Ibuprofen* (Motrin*) 600 Mg Tab, 600 MG PO Q6, #30 TAB Prov:JUAN ALBERTO YIP PA-C 11/15/16 Clindamycin Hcl* (Clindamycin Hcl*) 300 Mg Capsule, 300 MG PO TID for 10 Days, CAP Prov:JUAN ALBERTO YIP PA-C 11/15/16 Bismuth Subsalicylate* (Pepto-Bismol*) 262 Mg/15 Ml Oral.susp, 15 ML PO Q6H Y for DIARRHEA for 4 Days, ML Prov:PATRICE ROWE MD 10/08/16 Acetaminophen with Codeine (Acetaminophen-Cod #3 Tablet) 1 Each Tablet, 1 TAB PO Q6H Y for PAIN, #10 TAB Prov:PATRICE ROWE MD 10/08/16 Ibuprofen* (Motrin*) 600 Mg Tab, 600 MG PO Q6, #15 TAB Prov:PATRICE ROWE MD 10/08/16 Diphenhydramine Hcl* (Benadryl*) 25 Mg Cap, 25 MG PO Q6, #30 CAP Prov:ELIU GARCIA PA-C 08/10/16 Cephalexin* (Keflex*) 500 Mg Capsule, 500 MG PO QID for 7 Days, CAP Prov:KAYODE LANDERS PA-C 03/26/16 Ibuprofen* (Motrin*) 800 Mg Tab, 800 MG PO Q6, #30 TAB Prov:KYAODE LANDERS PA-C 03/26/16 Sulfamethoxazole-Trimethoprim* (Bactrim* DS) 800-160 Mg Tab, 1 TAB PO BID for 7 Days, TAB Prov:KAYODE LANDERS PA-C 03/26/16 Mupirocin* (Bactroban*) 2% -22 Gram Oint...g., 1 APPLIC TOP BID for 7 Days, EA Prov:LEYDA FARMER PA-C 02/17/16 Sulfamethoxazole-Trimethoprim* (Bactrim* DS) 800-160 Mg Tab, 1 TAB PO BID for 7 Days, TAB Prov:LEYDA FARMER PA-C 02/17/16 Cephalexin* (Keflex*) 500 Mg Capsule, 500 MG PO QID for 7 Days, CAP Prov:LEYDA FARMER PA-C 02/17/16 Diphenhydramine Hcl* (Benadryl*) 25 Mg Cap, 25 MG PO Q6, #20 CAP Prov:LEYDA FARMER PA-C 02/17/16 Diphenhydramine Hcl* (Benadryl*) 50 Mg Cap, 50 MG PO Q6H Y for ITCHING/RASH, # 30 CAP Prov:FLOYD MELGAR NP 02/08/16 Clotrimazole* (Clotrimazole* AF) 1% - 30 Gm Cream.gm., 1 APPLIC TOP BID for 14 Days, TUB Prov:FLOYD MELGAR NP 02/08/16 Methylprednisolone* (Medrol* DOSE PACK) 4 Mg/Dose-Pack Tab.ds.pk, 4 MG PO . DIRECTED, #1 PACKET Prov:NIRMAL MORIN PA-C 4/30/16 Benzonatate* (Tessalon Perle*) 100 Mg Capsule, 100 MG PO Q8H Y for COUGH, #30 CAP Prov:NIRMAL MORIN PA-C 12/03/15 Albuterol Sulfate* (Proair HFA*) 8.5 Gm Hfa.aer.ad, 2 PUFF INH Q4, #1 INHALER Prov:NIRMAL MORIN PA-C 12/03/15 Sulfamethoxazole-Trimethoprim* (Bactrim* DS) 800-160 Mg Tab, 1 TAB PO BID, #10 TAB 0 Refills Prov:DAVE CANDELARIA PA-C 10/31/15 Cephalexin* (Cephalexin*) 500 Mg Capsule, 500 MG PO Q6, #28 CAP 0 Refills Prov:DAVE CANDELARIA PA-C 10/31/15 Ibuprofen* (Motrin*) 600 Mg Tab, 600 MG PO Q6H Y for PAIN AND OR ELEVATED TEMP, #30 TAB Prov:ЕЛЕНА PAVON MD 09/17/15 Sulfamethoxazole-Trimethoprim* (Bactrim* DS) 800-160 Mg Tab, 1 TAB PO BID for 7 Days, TAB Prov:ЕЛЕНА PAVON MD 09/17/15 Cephalexin* (Keflex*) 500 Mg Capsule, 500 MG PO QID for 7 Days, CAP Prov:ЕЛЕНА PAVON MD 09/17/15 Acetaminophen* (Tylophen*) 500 Mg Capsule, 1 CAP PO Q4 Y for PAIN AND OR ELEVATED TEMP, #20 CAP Prov:YULI JOINER PA-C 06/12/15 Cephalexin* (Keflex*) 500 Mg Capsule, 500 MG PO QID for 5 Days, CAP Prov:YULI JOINER PA-C 06/12/15 Sulfamethoxazole-Trimethoprim* (Bactrim* DS) 800-160 Mg Tab, 1 TAB PO BID for 5 Days, TAB Prov:YULI JOINER PA-C 06/12/15 Allergies Allergies: Coded Allergies: No Known Allergy (Unverified , 10/08/16) PMhx/Soc Medical and Surgical Hx: pt denies Medical Hx, pt denies Surgical Hx History of Surgery: No Anesthesia Reaction: No Hx Neurological Disorder: No Hx Respiratory Disorders: No Hx Cardiac Disorders: No Hx Psychiatric Problems: No Hx Miscellaneous Medical Probl: Yes (hidradenitis suppurativa) Hx Alcohol Use: No Hx Substance Use: No Hx Tobacco Use: No Smoking Status: Never smoker FmHx Family History: No diabetes Physical Exam Vitals Vital Signs Date Time Temp Pulse Resp B/P Pulse Ox O2 Delivery O2 Flow Rate FiO2 01/10/17 11:27 98.3 77 18 143/93 99 Physical Exam GENERAL: Well-developed, well-nourished female. Appears in no acute distress. HEAD: Normocephalic, atraumatic. EYES: Pupils are equally reactive bilaterally. EOMs grossly intact. No conjunctival erythema. ENT: Moist mucous membranes. No uvula deviation. No kissing tonsils. NECK: Supple. No meningismus. Normal range of motion of the neck. LUNG: Clear to auscultation bilaterally. No rhonchi, wheezing, rales or coarse breath sounds. HEART: Regular rate and rhythm. No murmurs, rubs or gallops. EXTREMITIES: Equal pulses bilaterally. No peripheral clubbing, cyanosis or edema. No unilateral leg swelling. NEUROLOGIC: Alert and oriented. Moving all four extremities without any difficulty. Normal speech. Steady gait. SKIN: Numerous skin tags and scar tissue noted in bilateral axilla secondary to recurrent abscesses. Possible small abscess in left axilla, however no fluctuance noted. +Surrounding erythema and mild swelling of entire axilla region. Results 24 hrs Current Medications Medications (Trade) Dose Ordered Sig/Zay Route PRN Reason Start Time Stop Time Status Last Admin Dose Admin Lidocaine (Xylocaine 1% (Mdv) 20 ml) 20 ml ONCE ONCE SC 01/10/17 13:00 01/10/17 13:01 DC Procedures/MDM ED COURSE: The patient was stable throughout ED course. I explained to the patient that her findings were most consistent with recurrent suppurative hidradenitis and cellulitis. In examination room, I explained to the patient that she may have a possible abscess, but given that the area had already expressed some drainage yesterday, incision and drainage was not indicated at this time. Patient was adamant and stated that she wished to have incision and drainage completed given that the previous providers have done this for her in the past. I explained to the patient that her findings were most consistent with cellulitis , however I would attempt incision and drainage per her request. Patient was then move from the assessment room to procedure room for incision and drainage. Upon my return to procedure room, patient stated that she needed a new rx for Benadryl despite previously showing me a bottle of Benadryl tabs that she had just received yesterday. Upon further discussion, patient admitted to finishing the bottle and taking 5-6 tabs of Benadryl because "I was nervous." I spoke to my supervising physician, Dr. Pavon, about the patient's case and intake of Benadryl. At this time, it was determined it was not appropriate to perform an incision and drainage. Patient was advised that she should continue to take antibiotics as prescribed and follow up with a hat maker on outpatient basis. Given the sedative side effects of Benadryl, I advised the patient we would need to observe and monitor her for at least 1-2 hours to ensure her safety. I explained to the patient the adverse risks of taking medications improperly including respiratory distress/failure and . Patient refused to remain in the ER. Nursing staff and myself attempted to have sign out AMA however, patient became argumentative and left the ED. Patient eloped. Supervising physician, Dr. Pavon, was aware of this situation. Departure Diagnosis: Primary Impression: Suppurative hidradenitis Additional Impression: Cellulitis Site of cellulitis: extremity Site of cellulitis of extremity: axilla Laterality: unspecified laterality Qualified Code: L03.119 - Cellulitis of axilla, unspecified laterality Condition: Fair Patient Instructions: Cellulitis Referrals: JES BARNETT MD,KAMERON ROSARIO MD,IRLANDA WESTBROOK [facility] YOU HAVE RECEIVED A MEDICAL SCREENING EXAM AND THE RESULTS INDICATE THAT YOU DO NOT HAVE A CONDITION THAT REQUIRES URGENT TREATMENT IN THE EMERGENCY DEPARTMENT. FURTHER EVALUATION AND TREATMENT OF YOUR CONDITION CAN WAIT UNTIL YOU ARE SEEN IN YOUR DOCTORS OFFICE WITHIN THE NEXT 1-2 DAYS. IT IS YOUR RESPONSIBILITY TO MAKE AN APPOINTMENT FOR FOLOW-UP CARE. IF YOU HAVE A PRIMARY DOCTOR --you should call your primary doctor and schedule an appointment IF YOU DO NOT HAVE A PRIMARY DOCTOR YOU CAN CALL OUR PHYSICIAN REFERRAL HOTLINE AT IF YOU CAN NOT AFFORD TO SEE A PHYSICIAN YOU CAN CHOSE FROM THE FOLLOWING [facility] [address] [facility]. [facility] [address] [facility] [address] [facility] [address] [facility] [address] [facility]. [facility] [address] [facility] [facility] YOU HAVE RECEIVED A MEDICAL SCREENING EXAM AND THE RESULTS INDICATE THAT YOU DO NOT HAVE A CONDITION THAT REQUIRES URGENT TREATMENT IN THE EMERGENCY DEPARTMENT. FURTHER EVALUATION AND TREATMENT OF YOUR CONDITION CAN WAIT UNTIL YOU ARE SEEN IN YOUR DOCTORS OFFICE WITHIN THE NEXT 1-2 DAYS. IT IS YOUR RESPONSIBILITY TO MAKE AN APPOINTMENT FOR FOLOW-UP CARE. IF YOU HAVE A PRIMARY DOCTOR --you should call your primary doctor and schedule and appointment IF YOU DO NOT HAVE A PRIMARY DOCTOR YOU CAN CALL OUR PHYSICIAN REFERRAL HOTLINE AT . IF YOU CAN NOT AFFORD TO SEE A PHYSICIAN YOU CAN CHOSE FROM THE FOLLOWING [facility] INSTITUTIONS: [facility] [address] [place] [address] [facility] [address] [place] [address] [facility] [address] [place] [address] Additional Instructions: Call your primary care doctor TOMORROW for an appointment during the next 1-2 days.See the doctor sooner or return here if your condition worsens before your appointment time. Follow up with her hat maker as scheduled. ANKIT MONTALVO PA-C Jan 10, 2017 14:13
== END 2017-01-10 14:30 | disposition left against medical advice (07) ==
LOC: FTE 11:21
DX: L73.2 Hidradenitis suppurativa (principal); L03.112 Cellulitis of left axilla
CPT/HCPCS: Z7502; Z7610; 99282

== ENCOUNTER 2017-05-28 17:12 | Emergency (ER) | payer OTHER ==
[~2017-05-28] VITALS: Ht 157.5 cm; Wt 105.0 kg
[2017-05-28 17:25] VITALS: Ht 157.5 cm; Wt 105.0 kg
[2017-05-28] MEDS ORDERED: DIPHTH/TET/ACEL PERTUSS (ADULT) 0.5 ML VIAL IM* ONE (19:00)
--- NOTE | 2017-05-28 19:56 | RADRPT ---
PROCEDURE: XR Left Hand CLINICAL INDICATION: Dog bite middle finger TECHNIQUE: PA, oblique, and lateral radiographs were submitted. COMPARISON: None FINDINGS: Osseous structures: appear well mineralized and intact with no fracture or destructive process iden tified. Joint spaces: are well maintained, with no significant spurring, erosion or joint effusion evident. Soft tissues: On the PA view only, 2 calcific densities project lateral to the proximal interphalang eal joint of the left middle finger IMPRESSION: 1. 2 small calcific densities no larger than 3 mm project in the soft tissues lateral to the proxim al interphalangeal joint of the left middle finger. 2. No fracture or dislocation is identified. Physician Jp Date Time Electronically viewed and signed by Physician Jp on 05/28/2017 19:55 /
[2017-05-28] MEDS ORDERED: AMOX1TAB10 PO (20:06)
[2017-05-28] MEDS ORDERED: IBUP-1542 PO (20:06)
--- NOTE | 2017-05-28 20:10 | ERD ---
ER Documentation Chief Complaint Chief Complaint DOG BITE MIDDLE FINGER LT HAND HPI Patient is a 26-year-old female who presents with dog bite to her left middle finger that occurred for her back to the emergency room. She has mild to moderate pain at the site of the bite. No loss of range of motion. No numbness or tingling. Unsure last tetanus vaccination. She has not taken any medications for this. ROS All systems reviewed and are negative except as per history of present illness. Medications Home Meds Active Scripts Ibuprofen* (Motrin*) 600 Mg Tab, 600 MG PO Q6, #30 TAB Prov:KAYODE LANDERS PA-C 05/28/17 Amoxicillin/Potassium Clav (Amox-Clav 875-125 mg Tablet) 875-125 mg Tab, 1 TAB PO BID for 10 Days, #20 TAB Prov:KAYODE LANDERS PA-C 05/28/17 Diphenhydramine Hcl* (Benadryl*) 25 Mg Cap, 25 MG PO Q6, #15 CAP Prov:PATRICE ROWE MD 01/09/17 Doxycycline Hyclate* (Doxycycline Hyclate*) 100 Mg Tablet.dr, 100 MG PO BID for 10 Days, #20 TAB Prov:DEBORAH CLARK PA-C 01/09/17 Ibuprofen* (Motrin*) 600 Mg Tab, 600 MG PO Q6, #30 TAB Prov:JUAN ALBERTO YIP PA-C 11/15/16 Clindamycin Hcl* (Clindamycin Hcl*) 300 Mg Capsule, 300 MG PO TID for 10 Days, CAP Prov:JUAN ALBERTO YIP PA-C 11/15/16 Bismuth Subsalicylate* (Pepto-Bismol*) 262 Mg/15 Ml Oral.susp, 15 ML PO Q6H Y for DIARRHEA for 4 Days, ML Prov:PATRICE ROWE MD 10/08/16 Acetaminophen with Codeine (Acetaminophen-Cod #3 Tablet) 1 Each Tablet, 1 TAB PO Q6H Y for PAIN, #10 TAB Prov:PATRICE ROWE MD 10/08/16 Ibuprofen* (Motrin*) 600 Mg Tab, 600 MG PO Q6, #15 TAB Prov:PATRICE ROWE MD 10/08/16 Diphenhydramine Hcl* (Benadryl*) 25 Mg Cap, 25 MG PO Q6, #30 CAP Prov:ELIU GARCIA PA-C 08/10/16 Cephalexin* (Keflex*) 500 Mg Capsule, 500 MG PO QID for 7 Days, CAP Prov:KAYODE LANDERS PA-C 03/26/16 Ibuprofen* (Motrin*) 800 Mg Tab, 800 MG PO Q6, #30 TAB Prov:KAYODE LANDERS PA-C 03/26/16 Sulfamethoxazole-Trimethoprim* (Bactrim* DS) 800-160 Mg Tab, 1 TAB PO BID for 7 Days, TAB Prov:KAYODE LANDERS PA-C 03/26/16 Mupirocin* (Bactroban*) 2% -22 Gram Oint...g., 1 APPLIC TOP BID for 7 Days, EA Prov:LEYDA FARMER PA-C 02/17/16 Sulfamethoxazole-Trimethoprim* (Bactrim* DS) 800-160 Mg Tab, 1 TAB PO BID for 7 Days, TAB Prov:LEYDA FARMER PA-C 02/17/16 Cephalexin* (Keflex*) 500 Mg Capsule, 500 MG PO QID for 7 Days, CAP Prov:LEYDA FARMER PA-C 02/17/16 Diphenhydramine Hcl* (Benadryl*) 25 Mg Cap, 25 MG PO Q6, #20 CAP Prov:LEYDA FARMER PA-C 02/17/16 Diphenhydramine Hcl* (Benadryl*) 50 Mg Cap, 50 MG PO Q6H Y for ITCHING/RASH, # 30 CAP Prov:FLOYD MELGAR NP 02/08/16 Clotrimazole* (Clotrimazole* AF) 1% - 30 Gm Cream.gm., 1 APPLIC TOP BID for 14 Days, TUB Prov:FLOYD MELGAR BILINGUAL RESEARCH INTERVIEWER 02/08/16 Methylprednisolone* (Medrol* DOSE PACK) 4 Mg/Dose-Pack Tab.ds.pk, 4 MG PO . DIRECTED, #1 PACKET Prov:NIRMAL MORIN PA-C 12/03/15 Benzonatate* (Tessalon Perle*) 100 Mg Capsule, 100 MG PO Q8H Y for COUGH, #30 CAP Prov:NIRMAL MORIN PA-C 12/03/15 Albuterol Sulfate* (Proair HFA*) 8.5 Gm Hfa.aer.ad, 2 PUFF INH Q4, #1 INHALER Prov:NIRMAL MORIN PA-C 12/03/15 Sulfamethoxazole-Trimethoprim* (Bactrim* DS) 800-160 Mg Tab, 1 TAB PO BID, #10 TAB 0 Refills Prov:DAVE CANDELARIA PA-C 10/31/15 Cephalexin* (Cephalexin*) 500 Mg Capsule, 500 MG PO Q6, #28 CAP 0 Refills Prov:DAVE CANDELARIA PA-C 10/31/15 Ibuprofen* (Motrin*) 600 Mg Tab, 600 MG PO Q6H Y for PAIN AND OR ELEVATED TEMP, #30 TAB Prov:ЕЛЕНА PAVON MD 09/17/15 Sulfamethoxazole-Trimethoprim* (Bactrim* DS) 800-160 Mg Tab, 1 TAB PO BID for 7 Days, TAB Prov:ЕЛЕНА APVON MD 09/17/15 Cephalexin* (Keflex*) 500 Mg Capsule, 500 MG PO QID for 7 Days, CAP Prov:ЕЛЕНА PAVON MD 09/17/15 Acetaminophen* (Tylophen*) 500 Mg Capsule, 1 CAP PO Q4 Y for PAIN AND OR ELEVATED TEMP, #20 CAP Prov:YULI JOINER PA-C 06/12/15 Cephalexin* (Keflex*) 500 Mg Capsule, 500 MG PO QID for 5 Days, CAP Prov:YULI JOINER PA-C 06/12/15 Sulfamethoxazole-Trimethoprim* (Bactrim* DS) 800-160 Mg Tab, 1 TAB PO BID for 5 Days, TAB Prov:YULI JOINER PA-C 06/12/15 Allergies Allergies: Coded Allergies: No Known Allergy (Unverified , 10/08/16) PMhx/Soc Medical and Surgical Hx: pt denies Surgical Hx History of Surgery: No Anesthesia Reaction: No Hx Neurological Disorder: No Hx Respiratory Disorders: No Hx Cardiac Disorders: No Hx Psychiatric Problems: No Hx Miscellaneous Medical Probl: Yes (hidradenitis suppurativa) Hx Alcohol Use: No Hx Substance Use: No Hx Tobacco Use: No Smoking Status: Never smoker FmHx Family History: No diabetes Physical Exam Vitals Vital Signs Date Time Temp Pulse Resp B/P Pulse Ox O2 Delivery O2 Flow Rate FiO2 05/28/17 17:25 99.0 99 18 135/80 97 Physical Exam Const: [] Head: Atraumatic Eyes: Normal Conjunctiva ENT: Normal External Ears, Nose and Mouth. Neck: Full range of motion..~ No meningismus. Resp: Clear to auscultation bilaterally Cardio: Regular rate and rhythm, no murmurs Skin: Left middle finger has a small puncture wound on the lateral edge between the base of the finger and the PIP joint, no bleeding or drainage, full range of motion in the finger, nontender, no bony abnormalities Results 24 hrs Current Medications Medications (Trade) Dose Ordered Sig/Zay Route PRN Reason Start Time Stop Time Status Last Admin Dose Admin Diphtheria/ Tetanus/Acell Pertussis (Adacel) 0.5 ml ONCE ONCE IM* 05/28/17 19:00 05/28/17 19:01 DC 05/28/17 19:30 Procedures/MDM Patient presents with dog bite. She is neurovascular intact. She was given a tetanus vaccination. X-ray was ordered and was negative for fracture dislocation. She was given prescription for Augmentin and and ibuprofen. Patient counseled regarding my diagnostic impression and care plan. Prior to discharge all questions answered. Pt agrees with treatment plan and understands strict return precautions. Pt is instructed to follow up with primary care provider within 24-48 hours. Precautionary instructions provided including instructions to return to the ER if not improving or for any worsening or changing symptoms or concerns. Departure Diagnosis: Primary Impression: Dog bite Condition: Stable Patient Instructions: Dog Bite Additional Instructions: Call your primary care doctor TOMORROW for an appointment during the next 1-2 days.See the doctor sooner or return here if your condition worsens before your appointment time. KAYODE LANDERS PA-C May 28, 2017 20:10
== END 2017-05-28 20:24 | disposition home or self-care (01) ==
LOC: FTE 17:12
DX: S61.253A Open bite of left middle finger without damage to nail, initial encounter (principal); W54.0XXA Bitten by dog, initial encounter; Y92.9 Unspecified place or not applicable; Z23 Encounter for immunization
CPT/HCPCS: 73130; 90471; 90715; Z7502

== ENCOUNTER 2017-07-30 15:45 | Emergency (ER) | payer SELFPAY ==
[~2017-07-30] VITALS: Wt 105.9 kg
[~2017-07-30 15:45] MED LIST changes: +AMOX1TAB10 PO
== END 2017-07-30 18:55 | disposition left against medical advice (07) ==
LOC: FTE 15:45
DX: Z53.21 Procedure and treatment not carried out due to patient leaving prior to being seen by health care provider (principal)

== ENCOUNTER 2017-12-28 10:12 | Emergency (ER) | END 2017-12-28 10:37 | disposition home or self-care (01) ==

== ENCOUNTER 2018-02-17 10:15 | Emergency (ER) | END 2018-02-17 11:29 | disposition home or self-care (01) ==

== ENCOUNTER 2018-07-25 09:43 | Emergency (ER) | END 2018-07-25 11:43 | disposition home or self-care (01) ==

== ENCOUNTER 2018-08-19 19:02 | Emergency (ER) | payer OTHER ==
[~2018-08-19] VITALS: Ht 160 cm; Wt 82.5 kg
[~2018-08-19 19:02] MED LIST changes: -ALBU8.5H3 INH; +ALBU8.5H8 INH; +BENZ-6 PO; -BENZ100C70 PO; +CLI30GEL TOP; -CLIN-73 PO; +CLIN300C10 PO; +CLIN40GE TP; -IBUP800T25 PO; +IBUP800T48 PO
[2018-08-19 19:15] VITALS: Ht 160 cm; Wt 82.5 kg
[2018-08-19] MEDS ORDERED: DOXY100T21 PO (19:40)
[2018-08-19] MEDS ORDERED: MUPI22OI2 TOP (19:40)
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
[2018-08-19 20:26] VITALS: BP 132/82; PULSE 100; RESP 20
== END 2018-08-19 20:28 | disposition home or self-care (01) ==
LOC: FTE 19:02
DX: L01.00 Impetigo, unspecified (principal); F17.210 Nicotine dependence, cigarettes, uncomplicated
CPT/HCPCS: 99283

== ENCOUNTER 2018-11-09 16:35 | Emergency (ER) | payer OTHER ==
[~2018-11-09] VITALS: Ht 157.5 cm; Wt 81.1 kg
[~2018-11-09 16:35] MED LIST changes: +DOXY100T21 PO
[2018-11-09 16:41] VITALS: Ht 157.5 cm; Wt 81.1 kg
[2018-11-09] MEDS ORDERED: IBUP-1542 PO (17:39)
[2018-11-09] MEDS ORDERED: DOXY100T20 PO (17:39)
--- NOTE | 2018-11-09 18:28 | ERD ---
ER Documentation Chief Complaint Chief Complaint c/o abscess on both axilla and "crotch" area HPI 28-year-old female patient with a past medical history of hidradenitis supra T Holli presents to the ED complaining of boils on her bilateral armpits and groin area. States that they have been slightly itchy and painful. Rates her pain a 3 out of 10. States that she has not done anything to make it better however she still awaiting for surgery for removal of her boils. Denies any chest pain, shortness of breath, nausea, vomiting, diarrhea, neck stiffness, abdominal pain. ROS All systems reviewed and are negative except as per history of present illness. Medications Home Meds Active Scripts Ibuprofen* (Motrin*) 600 Mg Tab, 600 MG PO Q6, #30 TAB Prov:ELIU GARCIA PA-C 11/09/18 Doxycycline Hyclate* (Doxycycline Hyclate*) 100 Mg Tablet.dr, 100 MG PO BID for 10 Days, TAB Prov:ELIU GARCIA PA-C 11/09/18 Mupirocin* (Bactroban*) 2% -22 Gram Oint...g., 1 APPLIC TOP BID for 7 Days, EA Prov:PATRICE ROWE MD 08/19/18 Doxycycline Monohydrate* (Doxycycline Monohydrate*) 100 Mg Tablet, 100 MG PO BID for 10 Days, TAB Prov:PATRICE ROWE MD 08/19/18 Acetaminophen* (Tylophen*) 500 Mg Capsule, 1 CAP PO Q6H PRN for PAIN AND OR ELEVATED TEMP, #15 CAP Prov:PATRICE ROWE MD 07/25/18 Acetaminophen* (Tylophen*) 500 Mg Capsule, 1 CAP PO Q6H PRN for PAIN AND OR ELEVATED TEMP, #20 CAP Prov:FLOYD MELGAR NP 02/17/18 Clindamycin Phosphate (Clindagel) 40 Ml Gel..ml., 1 APPLIC TP BID, #1 TUB Prov:FLOYD MELGAR NP 02/17/18 Clindamycin* (Cleocin T* Topical) 1% - 30 Gm Gel, 1 APPLIC TOP BID, #1 BOTTLE Prov:ANKIT MONTALVO PA-C 12/28/17 Ibuprofen* (Motrin*) 600 Mg Tab, 600 MG PO Q6, #30 TAB Prov:KAYODE LANDERS PA-C 05/28/17 Amoxicillin/Potassium Clav (Amox-Clav 875-125 mg Tablet) 875-125 mg Tab, 1 TAB PO BID for 10 Days, #20 TAB Prov:KAYODE LANDERS PA-C 05/28/17 Diphenhydramine Hcl* (Benadryl*) 25 Mg Cap, 25 MG PO Q6, #15 CAP Prov:PATRICE ROWE MD 01/09/17 Doxycycline Hyclate* (Doxycycline Hyclate*) 100 Mg Tablet.dr, 100 MG PO BID for 10 Days, #20 TAB Prov:DEBORAH CLARK PA-C 01/09/17 Ibuprofen* (Motrin*) 600 Mg Tab, 600 MG PO Q6, #30 TAB Prov:JUAN ALBERTO YIP PA-C 11/15/16 Clindamycin Hcl* (Clindamycin Hcl*) 300 Mg Capsule, 300 MG PO TID for 10 Days, CAP Prov:JUAN ALBERTO YIP PA-C 11/15/16 Bismuth Subsalicylate* (Pepto-Bismol*) 262 Mg/15 Ml Oral.susp, 15 ML PO Q6H PRN for DIARRHEA for 4 Days, ML Prov:PATRICE ROWE MD 10/08/16 Acetaminophen with Codeine (Acetaminophen-Cod #3 Tablet) 1 Each Tablet, 1 TAB PO Q6H PRN for PAIN, #10 TAB Prov:PATRICE ROWE MD 10/08/16 Ibuprofen* (Motrin*) 600 Mg Tab, 600 MG PO Q6, #15 TAB Prov:PATRICE ROWE MD 10/08/16 Diphenhydramine Hcl* (Benadryl*) 25 Mg Cap, 25 MG PO Q6, #30 CAP Prov:ELIU GARCIA PA-C 08/10/16 Cephalexin* (Keflex*) 500 Mg Capsule, 500 MG PO QID for 7 Days, CAP Prov:KAYODE LANDERS PA-C 03/26/16 Ibuprofen* (Motrin*) 800 Mg Tab, 800 MG PO Q6, #30 TAB Prov:KAYODE LANDERS PA-C 03/26/16 Sulfamethoxazole-Trimethoprim* (Bactrim* DS) 800-160 Mg Tab, 1 TAB PO BID for 7 Days, TAB Prov:KAYODE LANDERS PA-C 03/26/16 Mupirocin* (Bactroban*) 2% -22 Gram Oint...g., 1 APPLIC TOP BID for 7 Days, EA Prov:LEYDA FARMER PA-C 02/17/16 Sulfamethoxazole-Trimethoprim* (Bactrim* DS) 800-160 Mg Tab, 1 TAB PO BID for 7 Days, TAB Prov:LEYDA FARMER PA-C 02/17/16 Cephalexin* (Keflex*) 500 Mg Capsule, 500 MG PO QID for 7 Days, CAP Prov:LEYDA FARMER PA-C 02/17/16 Diphenhydramine Hcl* (Benadryl*) 25 Mg Cap, 25 MG PO Q6, #20 CAP Prov:LEYDA FARMER PA-C 02/17/16 Diphenhydramine Hcl* (Benadryl*) 50 Mg Cap, 50 MG PO Q6H PRN for ITCHING/RASH, #30 CAP Prov:FLOYD MELGAR NP 02/08/16 Clotrimazole* (Clotrimazole* AF) 1% - 30 Gm Cream.gm., 1 APPLIC TOP BID for 14 Days, TUB Prov:FLOYD MELGAR INSURANCE POLICY ISSUE CLERK 02/08/16 Methylprednisolone* (Medrol* DOSE PACK) 4 Mg/Dose-Pack Tab.ds.pk, 4 MG PO . DIRECTED, #1 PACKET Prov:NIRMAL MORIN PA-C 12/03/15 Benzonatate* (Tessalon Perle*) 100 Mg Capsule, 100 MG PO Q8H PRN for COUGH, #30 CAP Prov:NIRMAL MORIN PA-C 12/03/15 Albuterol Sulfate* (Proair HFA*) 8.5 Gm Hfa.aer.ad, 2 PUFF INH Q4, #1 INHALER Prov:NIRMAL MORIN PA-C 12/03/15 Sulfamethoxazole-Trimethoprim* (Bactrim* DS) 800-160 Mg Tab, 1 TAB PO BID, #10 TAB 0 Refills Prov:DAVE CANDELARIA PA-C 10/31/15 Cephalexin* (Cephalexin*) 500 Mg Capsule, 500 MG PO Q6, #28 CAP 0 Refills Prov:DAVE CANDELARIA PA-C 10/31/15 Ibuprofen* (Motrin*) 600 Mg Tab, 600 MG PO Q6H PRN for PAIN AND OR ELEVATED TEMP, #30 TAB Prov:ЕЛЕНА PAVON MD 09/17/15 Sulfamethoxazole-Trimethoprim* (Bactrim* DS) 800-160 Mg Tab, 1 TAB PO BID for 7 Days, TAB Prov:ЕЛЕНА PAVON MD 09/17/15 Cephalexin* (Keflex*) 500 Mg Capsule, 500 MG PO QID for 7 Days, CAP Prov:ЕЛЕНА PAVON MD 09/17/15 Acetaminophen* (Tylophen*) 500 Mg Capsule, 1 CAP PO Q4 PRN for PAIN AND OR ELEVATED TEMP, #20 CAP Prov:YULI JOINER PA-C 06/12/15 Cephalexin* (Keflex*) 500 Mg Capsule, 500 MG PO QID for 5 Days, CAP Prov:YULI JOINER PA-C 06/12/15 Sulfamethoxazole-Trimethoprim* (Bactrim* DS) 800-160 Mg Tab, 1 TAB PO BID for 5 Days, TAB Prov:YULI JOINER PA-C 06/12/15 Allergies Allergies: Coded Allergies: No Known Allergy (Unverified , 10/08/16) PMhx/Soc History of Surgery: No Anesthesia Reaction: No Hx Neurological Disorder: No Hx Respiratory Disorders: No Hx Cardiac Disorders: No Hx Psychiatric Problems: No Hx Miscellaneous Medical Probl: Yes (hidradenitis suppurativa) Hx Alcohol Use: Yes (OOC) Hx Substance Use: No Hx Tobacco Use: Yes Smoking Status: Former smoker FmHx Family History: No diabetes, No coronary disease Physical Exam Vitals Vital Signs Date Temp Pulse Resp B/P (MAP) Pulse Ox O2 O2 Flow FiO2 Time Delivery Rate 11/09/18 98.0 100 20 135/81 97 16:41 (99) Physical Exam Const: [id number], well-nourished. In no acute distress. Head: Atraumatic, normocephalic Eyes: Normal Conjunctiva without injection ENT: Normal external ear, nose and mouth. Neck: Full range of motion. No meningismus. Resp: Clear to auscultation bilaterally. No wheezing, rhonchi, rales, or crackles. No accessory muscle use. No retractions. Cardio: Regular rate and rhythm, no murmurs Skin: No petechiae or purpura. Indurated boils, erythema noted of the left axilla and groin area. No fluctuance noted. No spontaneous purulent discharge noted. Back: No midline tenderness. No CVA tenderness. Ext: No cyanosis, or edema. Cap refill less than 2 seconds. Distal pulses intact bilaterally. Neur: Awake and alert. Normal gait and coordination. Muscle strength 5/5. Sensat ion intact bilaterally. Psych: Normal Mood and Affect Results 24 hrs Laboratory Tests Test 11/09/18 17:05 POC Beta HCG, Qualitative NEGATIVE Procedures/MDM 28-year-old female patient with no significant past medical history presents to the ED complaining of on her axilla and groin area has been going on for many years. Patient is afebrile and nontoxic-appearing. Urine negative. Since there is some erythema noted on patient's left axilla, patient will be treated on outpatient basis with oral antibiotics. No incision and drainage indicated at this time as there is no fluctuance. Warm compresses were recommended. Follow-up with a banking assistant or general surgeon was recommended. Low suspicion for anaphylaxis, scabies, SJS/TEN, TSS, Lyme's Disease, syphilis, RMSF, shingles, disseminated gonorrhea chlamydia, DIC, TTP, ITP, erythema multiforme, sepsis, cellulitis, necrotizing fasciitis, gangrene, meningococcemia, allergic contact dermatitis, urticaria, eczema, tinea infection, or other emergent conditions. Diagnosis: Hidradenitis Suppurativa Discharge medications: Doxycycline, ibuprofen Follow up with primary care physician in 1-2 days. Instructed patient to return to the ED sooner for any worsening symptoms. Patient's questions were answered. Patient is hemodynamically stable. Patient understood and agreed with discharge plan. Patient discharged stable. Disclaimer: Inadvertent spelling and grammatical errors are likely due to EHR/dictation software use and do not reflect on the overall quality of patient care. Also, please note that the electronic time recorded on this note does not necessarily reflect the actual time of the patient encounter. Departure Diagnosis: Primary Impression: Hidradenitis suppurativa Condition: Stable Patient Instructions: Hidradenitis Suppurativa, Abx Referrals: [facility] YOU HAVE RECEIVED A MEDICAL SCREENING EXAM AND THE RESULTS INDICATE THAT YOU DO NOT HAVE A CONDITION THAT REQUIRES URGENT TREATMENT IN THE EMERGENCY DEPARTMENT. FURTHER EVALUATION AND TREATMENT OF YOUR CONDITION CAN WAIT UNTIL YOU ARE SEEN IN YOUR DOCTORS OFFICE WITHIN THE NEXT 1-2 DAYS. IT IS YOUR RESPONSIBILITY TO MAKE AN APPOINTMENT FOR FOLOW-UP CARE. IF YOU HAVE A PRIMARY DOCTOR --you should call your primary doctor and schedule an appointment IF YOU DO NOT HAVE A PRIMARY DOCTOR YOU CAN CALL OUR PHYSICIAN REFERRAL HOTLINE AT IF YOU CAN NOT AFFORD TO SEE A PHYSICIAN YOU CAN CHOSE FROM THE FOLLOWING [facility] [address] [facility]. [facility] [address] [facility] [address] [facility] [facility] [address] [facility] [facility] [address] [facility]. [facility] [address] [facility] [place]. [facility] YOU HAVE RECEIVED A MEDICAL SCREENING EXAM AND THE RESULTS INDICATE THAT YOU DO NOT HAVE A CONDITION THAT REQUIRES URGENT TREATMENT IN THE EMERGENCY DEPARTMENT. FURTHER EVALUATION AND TREATMENT OF YOUR CONDITION CAN WAIT UNTIL YOU ARE SEEN IN YOUR DOCTORS OFFICE WITHIN THE NEXT 1-2 DAYS. IT IS YOUR RESPONSIBILITY TO MAKE AN APPOINTMENT FOR FOLOW-UP CARE. IF YOU HAVE A PRIMARY DOCTOR --you should call your primary doctor and schedule and appointment IF YOU DO NOT HAVE A PRIMARY DOCTOR YOU CAN CALL OUR PHYSICIAN REFERRAL HOTLINE AT . IF YOU CAN NOT AFFORD TO SEE A PHYSICIAN YOU CAN CHOSE FROM THE FOLLOWING [facility] INSTITUTIONS: [facility] [address] [place] [address] [facility] [address] [place] [address] [facility] + [facility] [address] [place] [address] [facility] Additional Instructions: Call your primary care doctor TOMORROW for an appointment during the next 2-3 days.See the doctor sooner or return here if your condition worsens before your appointment time. ELIU GARCIA PA-C Nov 09, 2018 18:28
== END 2018-11-09 17:47 | disposition home or self-care (01) ==
LOC: FTE 16:35
DX: L73.2 Hidradenitis suppurativa (principal); Z87.891 Personal history of nicotine dependence
CPT/HCPCS: 81025; Z7502; 99283

== ENCOUNTER 2019-02-10 17:07 | Emergency (ER) | payer OTHER ==
[~2019-02-10] VITALS: Ht 152.4 cm; Wt 90.0 kg
[2019-02-10 17:10] VITALS: BP 137/78; PULSE 76; RESP 18; Ht 152.4 cm; Wt 90.0 kg
--- NOTE | 2019-02-10 17:27 | ERD ---
ER Documentation Chief Complaint Chief Complaint TOOTH ACHE HPI 28-year-old female with no significant past medical history presents to the emergency department complaining of left lower molar dental pain which began today. She reports 10/10 pain which is constant. It began after eating pork and chicken. She took no medication for relief of symptoms. She denies any fevers, chills, facial swelling, neck swelling, sore throat, or other symptoms at this time. ROS All systems reviewed and are negative except as per history of present illness. Medications Home Meds Active Scripts Ibuprofen* (Motrin*) 600 Mg Tab, 600 MG PO Q6, #30 TAB Prov:ELIU GARCIA PA-C 11/09/18 Doxycycline Hyclate* (Doxycycline Hyclate*) 100 Mg Tablet.dr, 100 MG PO BID for 10 Days, TAB Prov:ELIU GARCIA PA-C 11/09/18 Mupirocin* (Bactroban*) 2% -22 Gram Oint...g., 1 APPLIC TOP BID for 7 Days, EA Prov:PATRICE ROWE MD 08/19/18 Doxycycline Monohydrate* (Doxycycline Monohydrate*) 100 Mg Tablet, 100 MG PO BID for 10 Days, TAB Prov:PATRICE ROWE MD 08/19/18 Acetaminophen* (Tylophen*) 500 Mg Capsule, 1 CAP PO Q6H PRN for PAIN AND OR ELEVATED TEMP, #15 CAP Prov:PATRICE ROWE MD 07/25/18 Acetaminophen* (Tylophen*) 500 Mg Capsule, 1 CAP PO Q6H PRN for PAIN AND OR ELEVATED TEMP, #20 CAP Prov:FLOYD MELGAR NP 02/17/18 Clindamycin Phosphate (Clindagel) 40 Ml Gel..ml., 1 APPLIC TP BID, #1 TUB Prov:FLOYD MELGAR NP 02/17/18 Clindamycin* (Cleocin T* Topical) 1% - 30 Gm Gel, 1 APPLIC TOP BID, #1 BOTTLE Prov:ANKIT MONTALVO PA-C 12/28/17 Ibuprofen* (Motrin*) 600 Mg Tab, 600 MG PO Q6, #30 TAB Prov:KAYODE LANDERS PA-C 05/28/17 Amoxicillin/Potassium Clav (Amox-Clav 875-125 mg Tablet) 875-125 mg Tab, 1 TAB PO BID for 10 Days, #20 TAB Prov:KAYODE LANDERS PA-C 05/28/17 Diphenhydramine Hcl* (Benadryl*) 25 Mg Cap, 25 MG PO Q6, #15 CAP Prov:PATRICE ROWE MD 01/09/17 Doxycycline Hyclate* (Doxycycline Hyclate*) 100 Mg Tablet.dr, 100 MG PO BID for 10 Days, #20 TAB Prov:DEBORAH CLARK PA-C 01/09/17 Ibuprofen* (Motrin*) 600 Mg Tab, 600 MG PO Q6, #30 TAB Prov:JUAN ALBERTO YIP PA-C 11/15/16 Clindamycin Hcl* (Clindamycin Hcl*) 300 Mg Capsule, 300 MG PO TID for 10 Days, CAP Prov:JUAN ALBERTO YIP PA-C 11/15/16 Bismuth Subsalicylate* (Pepto-Bismol*) 262 Mg/15 Ml Oral.susp, 15 ML PO Q6H PRN for DIARRHEA for 4 Days, ML Prov:PATRICE ROWE MD 10/08/16 Acetaminophen with Codeine (Acetaminophen-Cod #3 Tablet) 1 Each Tablet, 1 TAB PO Q6H PRN for PAIN, #10 TAB Prov:PATRICE ROWE MD 10/08/16 Ibuprofen* (Motrin*) 600 Mg Tab, 600 MG PO Q6, #15 TAB Prov:PATRICE ROWE MD 10/08/16 Diphenhydramine Hcl* (Benadryl*) 25 Mg Cap, 25 MG PO Q6, #30 CAP Prov:ELIU GARCIA PA-C 08/10/16 Cephalexin* (Keflex*) 500 Mg Capsule, 500 MG PO QID for 7 Days, CAP Prov:KAYODE LANDERS PA-C 03/26/16 Ibuprofen* (Motrin*) 800 Mg Tab, 800 MG PO Q6, #30 TAB Prov:KAYODE LANDERS PA-C 03/26/16 Sulfamethoxazole-Trimethoprim* (Bactrim* DS) 800-160 Mg Tab, 1 TAB PO BID for 7 Days, TAB Prov:KAYODE LANDERS PA-C 03/26/16 Mupirocin* (Bactroban*) 2% -22 Gram Oint...g., 1 APPLIC TOP BID for 7 Days, EA Prov:LEYDA FARMER PA-C 02/17/16 Sulfamethoxazole-Trimethoprim* (Bactrim* DS) 800-160 Mg Tab, 1 TAB PO BID for 7 Days, TAB Prov:LEYDA FARMER PA-C 02/17/16 Cephalexin* (Keflex*) 500 Mg Capsule, 500 MG PO QID for 7 Days, CAP Prov:LEYDA FARMER PA-C 02/17/16 Diphenhydramine Hcl* (Benadryl*) 25 Mg Cap, 25 MG PO Q6, #20 CAP Prov:LEYDA FARMER PA-C 02/17/16 Diphenhydramine Hcl* (Benadryl*) 50 Mg Cap, 50 MG PO Q6H PRN for ITCHING/RASH, #30 CAP Prov:FLOYD MELGAR. [employer]OP MECH[employer]IC 02/08/16 Clotrimazole* (Clotrimazole* AF) 1% - 30 Gm Cream.gm., 1 APPLIC TOP BID for 14 Days, TUB Prov:FLOYD MELGAR. B[employer] SHOP MECHANIC 02/08/16 Methylprednisolone* (Medrol* DOSE PACK) 4 Mg/Dose-Pack Tab.ds.pk, 4 MG PO . DIRECTED, #1 PACKET Prov:NIRMAL MORIN PA-C 12/03/15 Benzonatate* (Tessalon Perle*) 100 Mg Capsule, 100 MG PO Q8H PRN for COUGH, #30 CAP Prov:NIRMAL MORIN PA-C 12/03/15 Albuterol Sulfate* (Proair HFA*) 8.5 Gm Hfa.aer.ad, 2 PUFF INH Q4, #1 INHALER Prov:NIRMAL MORIN PA-C 12/03/15 Sulfamethoxazole-Trimethoprim* (Bactrim* DS) 800-160 Mg Tab, 1 TAB PO BID, #10 TAB 0 Refills Prov:DAVE CANDELARIA PA-C 10/31/15 Cephalexin* (Cephalexin*) 500 Mg Capsule, 500 MG PO Q6, #28 CAP 0 Refills Prov:DAVE CANDELARIA PA-C 10/31/15 Ibuprofen* (Motrin*) 600 Mg Tab, 600 MG PO Q6H PRN for PAIN AND OR ELEVATED TEMP, #30 TAB Prov:ЕЛЕНА PAVON MD 09/17/15 Sulfamethoxazole-Trimethoprim* (Bactrim* DS) 800-160 Mg Tab, 1 TAB PO BID for 7 Days, TAB Prov:ЕЛЕНА PAVON MD 09/17/15 Cephalexin* (Keflex*) 500 Mg Capsule, 500 MG PO QID for 7 Days, CAP Prov:ЕЛЕНА PAVON MD 09/17/15 Acetaminophen* (Tylophen*) 500 Mg Capsule, 1 CAP PO Q4 PRN for PAIN AND OR ELEVATED TEMP, #20 CAP Prov:YULI JOINERC 06/12/15 Cephalexin* (Keflex*) 500 Mg Capsule, 500 MG PO QID for 5 Days, CAP Prov:YULI JOINER-C 06/12/15 Sulfamethoxazole-Trimethoprim* (Bactrim* DS) 800-160 Mg Tab, 1 TAB PO BID for 5 Days, TAB Prov:YULI JOINER-C 06/12/15 Allergies Allergies: Coded Allergies: No Known Allergy (Unverified , 10/08/16) PMhx/Soc History of Surgery: No Anesthesia Reaction: No Hx Neurological Disorder: No Hx Respiratory Disorders: No Hx Cardiac Disorders: No Hx Psychiatric Problems: No Hx Miscellaneous Medical Probl: Yes (hidradenitis suppurativa) Hx Alcohol Use: Yes (OOC) Hx Substance Use: No Hx Tobacco Use: Yes Smoking Status: Current every day smoker FmHx Family History: No diabetes Physical Exam Vitals Vital Signs Date Temp Pulse Resp B/P (MAP) Pulse Ox O2 O2 Flow FiO2 Time Delivery Rate 02/10/19 98.1 76 18 137/78 99 17:10 (97) Physical Exam Const: No acute distress Head: Atraumatic. There is no facial edema or erythema noted. No warmth. Eyes: Normal Conjunctiva ENT: Normal External Ears, Nose and Mouth. Poor dentition. Gingival inflammation noted to the left lower molar region. No obvious dental abscess. Neck: Full range of motion. No meningismus. Resp: No respiratory distress. Skin: No petechiae or rashes Back: No midline or flank tenderness Ext: No cyanosis, or edema Neur: Awake and alert Psych: Normal Mood and Affect Results 24 hrs Current Medications Medications Dose Sig/Zay Start Time Status Last (Trade) Ordered Route PRN Stop Time Admin Dose Reason Admin 1 tab ONCE ONCE 02/10/19 Acetaminophen PO 17:30 02/10/19 / 17:31 Hydrocodone Bitart ([place] (5/325)) Procedures/MDM 28-year-old female presented to the emergency department with signs and symptoms consistent with dental pain with possible bacterial etiology. Patient will be treated as an outpatient with a prescription for amoxicillin and naproxen. She was given one [place] in the department with improvement of her symptoms. I doubt Graham's angina. I doubt serious bacterial infection. I doubt sepsis. She was advised to have close outpatient follow-up with a dentist and return here immediately for any new or worsening or concerning symptoms. She is in agree ent with the diagnosis, plan, need for follow-up, return precautions. Patient's blood pressure was elevated (>120/80) but appears stable without evidence of hypertension emergency or urgency. The patient is to follow-up and pursue outpatient monitoring and therapy with their primary care physician within 1 week and return immediately if they have any new, worsening, or concerning symptoms. Departure Diagnosis: Primary Impression: Toothache Condition: Fair Patient Instructions: Dental Pain Additional Instructions: Follow-up with a dentist within the next 24 to 48 hours and return here immediately for any new or worsening or concerning symptoms. Follow up with your PCP within the next 1-3 days for a repeat evaluation. If you require a referral to a specialist, your Primary Care Provider may be able to provide this for you. In most patient cases, a referral is not required. If you have further questions regarding this matter, please ask your Primary Care Provider. Return the the emergency department immediately if symptoms worsen or change. If you have any questions regarding medications, ask your pharmacist or us before you leave. If any adverse reactions, occur while taking your medications, discontinue the treatment and return to the emergency department i mmediately. If any new or worsening symptoms, uncontrolled fevers, or other unexplained symptoms occur, return to the emergency department immediately. Take your medications as directed, and complete the entire course of treatment. DEBORAH CLARK PA-C Feb 10, 2019 17:27
[2019-02-10] MEDS ORDERED: HYDROCODONE/APAP (5/325) TAB PO ONE (17:30)
[2019-02-10] MEDS ORDERED: AMOX500C2 PO (17:33)
[2019-02-10] MEDS ORDERED: NAPR-985 PO (17:33)
== END 2019-02-10 17:42 | disposition home or self-care (01) ==
LOC: FTE 17:07
DX: K08.89 Other specified disorders of teeth and supporting structures (principal); F17.210 Nicotine dependence, cigarettes, uncomplicated
CPT/HCPCS: Z7502; Z7610; 99283

== ENCOUNTER 2019-04-11 09:03 | Emergency (ER) | payer OTHER ==
[~2019-04-11] VITALS: Ht 157.5 cm; Wt 79.0 kg
[~2019-04-11 09:03] MED LIST changes: +AMOX500C2 PO; +NAPR-985 PO
[2019-04-11 09:10] VITALS: PULSE 84; Ht 157.5 cm; Wt 79.0 kg
[2019-04-11 09:48] VITALS: BP 145/71; RESP 16
[2019-04-11] MEDS ORDERED: IBUPROFEN 800 MG TAB PO ONE (10:00)
== END 2019-04-11 09:49 | disposition home or self-care (01) ==
LOC: E/R 09:03
DX: R07.89 Other chest pain (principal); R40.2142 Coma scale, eyes open, spontaneous, at arrival to emergency department; R40.2252 Coma scale, best verbal response, oriented, at arrival to emergency department; R40.2362 Coma scale, best motor response, obeys commands, at arrival to emergency department; F17.210 Nicotine dependence, cigarettes, uncomplicated
CPT/HCPCS: 81025; Z7502; Z7610; 99282